=== PATIENT | male | born 1970 | race Caucasian/White ===

== ENCOUNTER 2017-12-26 11:26 | Emergency (ER) | payer OTHER ==
--- NOTE | 2017-12-26 11:28 | EDM.PDOC ---
ED HPI GENERAL MEDICAL PROBLEM - General Stated Complaint: INJURED RT ARM Time Seen by Provider: 12/26/17 11:27 Source of Information: Reports: Patient - History of Present Illness INITIAL COMMENTS - FREE TEXT/NARRATIVE: HISTORY AND PHYSICAL: History of present illness: []Patient presents with right bicep pain and tenderness 4 out of 10 worsened by movement, just prior to arrival he was moving a water heater, he felt his right bicep "tear" on exam shoulder elbow and wrist are unaffected no pain with head movement is tender more on the proximal bicep there is no bruising redness or warmth entire limb is neurovascularly intact Nucleated this time appears as if there could be a partial tear, may involve the proximal bicep rather than distal insertion Review of systems: As per history of present illness and below otherwise all systems reviewed and negative. Past medical history: As per history of present illness and as reviewed below otherwise noncontributory. Surgical history: As per history of present illness and as reviewed below otherwise noncontributory. Social history: No reported history of drug or alcohol abuse. Family history: As per history of present illness and as reviewed below otherwise noncontributory. Physical exam: HEENT: Atraumatic, normocephalic, pupils reactive, negative for conjunctival pallor or scleral icterus, mucous membranes moist, throat clear, neck supple, nontender, trachea midline. Lungs: Clear to auscultation, breath sounds equal bilaterally, chest nontender. Heart: S1S2, regular, negative for clicks, rubs, or JVD. Abdomen: Soft, nondistended, nontender. Negative for masses or hepatosplenomegaly. Negative for costovertebral tenderness. Pelvis: Stable nontender. Genitourinary: Deferred. Rectal: Deferred. Extremities: Atraumatic, negative for cords or calf pain. Neurovascular unremarkable. Neuro: Awake, alert, oriented. Cranial nerves II through XII unremarkable. Cerebellum unremarkable. Motor and sensory unremarkable throughout. Exam nonfocal. Diagnostics: [Clinical ] Therapeutics: [ rest ice ibuprofen Sling for comfort Follow-up with fourth toe Impression: [ right bicep injury ] Definitive disposition and diagnosis as appropriate pending reevaluation and review of above. Right Upper Arm Pain Score (Numeric/FACES): 5 - Related Data Allergies Allergy/AdvReac Type Severity Reaction Status Date / Time No Known Allergies Allergy Verified 12/26/17 11:37 Home Meds: Home Meds Lisinopril 10 mg PO DAILY 05/25/14 [History] metFORMIN [Glucophage XR] 1,500 mg PO DAILY 05/25/14 [History] Pravastatin [Pravachol] 1 tab PO DAILY 04/09/16 [History] Empagliflozin [Jardiance] 1 tab PO DAILY 12/26/17 [History] Past Medical History Cardiovascular History: Reports: High Cholesterol, Hypertension Endocrine/Metabolic History: Reports: Diabetes, Type II - Infectious Disease History Infectious Disease History: Reports: Chicken Pox Social & Family History - Family History Family Medical History: Noncontributory - Caffeine Use Caffeine Use: Reports: Coffee ED ROS GENERAL - Review of Systems Review Of Systems: See Below ED EXAM, GENERAL - Physical Exam Exam: See Below Course - Vital Signs Last Recorded V/S: Last Vital Signs Temp 98.0 F 12/26/17 11:35 Pulse 81 12/26/17 11:35 Resp 18 12/26/17 11:35 BP 130/82 12/26/17 11:35 Pulse Ox 99 12/26/17 11:35 Departure - Departure Time of Disposition: 11:51 Disposition: Home, Self-Care 01 Condition: Good Clinical Impression: Biceps strain - Discharge Information Additional Instructions: Rest Ice 20 minute intervals 3 times daily Ibuprofen 400 mg 3 times daily 7-10 days Sling for comfort Follow-up with orthopedist, call phone number provided below to schedule appropriate follow-up [facility] [address], [address] [place] [address] my orthopedic The following information is given to patients seen in the emergency department who are being discharged to home. This information is to outline your options for follow-up care. We provide all patients seen in our emergency department with a follow-up referral. The need for follow-up, as well as the timing and circumstances, are variable depending upon the specifics of your emergency department visit. If you don't have a primary care physician on staff, we will provide you with a referral. We always advise you to contact your personal physician following an emergency department visit to inform them of the circumstance of the visit and for follow-up with them and/or the need for any referrals to a consulting specialist. The emergency department will also refer you to a specialist when appropriate. This referral assures that you have the opportunity for follow-up care with a specialist. All of these measure are taken in an effort to provide you with optimal care, which includes your follow-up. Under all circumstances we always encourage you to contact your private physician who remains a resource for coordinating your care. When calling for follow-up care, please make the office aware that this follow-up is from your recent emergency room visit. If for any reason you are refused follow-up, please contact the [facility] emergency department at and asked to speak to the emergency department charge nurse.
[2017-12-26 11:37] VITALS: BP 130/82
== END 2017-12-26 11:55 | disposition home or self-care (01) ==
LOC: MW.ED 11:26
DX: S46.211A Strain of muscle, fascia and tendon of other parts of biceps, right arm, initial encounter (principal); I10 Essential (primary) hypertension; E11.9 Type 2 diabetes mellitus without complications; X58.XXXA Exposure to other specified factors, initial encounter; Z79.899 Other long term (current) drug therapy
CPT/HCPCS: 99282; 99283

== ENCOUNTER 2020-01-15 09:52 | Day surgery (SDC) | payer OTHER ==
[~2020-01-15 09:52] MED LIST: Lactated Ringers 1,000 ML IV SCH
--- NOTE | 2020-01-15 10:29 | PCM.PREANE ---
Preanesthetic Assessment - Anesthesia/Transfusion/Family Hx Anesthesia History: Prior Anesthesia Without Reaction Family History of Anesthesia Reaction: No Transfusion History: No Prior Transfusion(s) - Review of Systems General: No Symptoms Pulmonary: No Symptoms Cardiovascular: No Symptoms Gastrointestinal: No Symptoms Neurological: No Symptoms Other: Reports: None - Physical Assessment NPO Status Date: 01/14/20 Height: 5 ft 7 in Weight: 99.79 kg ASA Class: 2 Mental Status: Alert & Oriented x3 Airway Class: Mallampati = 2 Dentition: Reports: Normal Dentition ROM/Head Extension: Full Lungs: Clear to Auscultation, Normal Respiratory Effort Cardiovascular: Regular Rate, Regular Rhythm - Allergies Allergies/Adverse Reactions: Allergies Allergy/AdvReac Type Severity Reaction Status Date / Time No Known Allergies Allergy Verified 01/09/20 14:17 - Blood Blood Available: No - Anesthesia Plan Pre-Op Medication Ordered: None - Acknowledgements Anesthesia Type Planned: General Anesthesia, MAC Pt an Appropriate Candidate for the Planned Anesthesia: Yes Alternatives and Risks of Anesthesia Discussed w Pt/Guardian: Yes Pt/Guardian Understands and Agrees with Anesthesia Plan: Yes Additional Comments: PMH: dm2- am [id number], htn, hemochromatosis, migraine, rosmery-uses cpap, PreAnesthesia Questionnaire Cardiovascular History: Reports: High Cholesterol, Hypertension Respiratory History: Reports: Sleep Apnea Other Respiratory History: uses CPAP every night Endocrine/Metabolic History: Reports: Diabetes, Type II, Obesity/BMI 30+ Hematologic History: Reports: Other (See Below) Other Hematologic History: hx of Hemochromatosis- donates blood at every blood drive - Infectious Disease History Infectious Disease History: Reports: Chicken Pox - Past Surgical History Head Surgeries/Procedures: Reports: None HEENT Surgical History: Reports: Eye Surgery, Tonsillectomy Male Surgical History: Reports: Vasectomy Neurological Surgical History: Reports: C-Spine, Spinal Fusion Other Neurological Surgeries/Procedures: unsure of procedure in neck but has a "plate" - SUBSTANCE USE Smoking Status *Q: Never Smoker Recreational Drug Use History: No - HOME MEDS Home Medications: Home Meds Lisinopril 10 mg PO BEDTIME 05/25/14 [History] Pravastatin [Pravachol] 20 mg PO BEDTIME 04/09/16 [History] Empagliflozin [Jardiance] 25 mg PO QAM 12/26/17 [History] Aspirin [Adult Low Dose Aspirin EC] 81 mg PO DAILY 12/21/19 [History] Ozempic 0.25 mg SQ WEEKLY 12/21/19 [History] metFORMIN HCl [Metformin HCl ER] 2,000 mg PO QPM 12/21/19 [History] - CURRENT (IN HOUSE) MEDS Current Meds: Current Medications Lactated Ringer's (Ringers, Lactated) 1,000 mls @ 125 mls/hr IV ASDIRECTED ROSALIA Discontinued Medications Lactated Ringer's (Ringers, Lactated) 1,000 mls @ 125 mls/hr IV ASDIRECTED ROSALIA
[2020-01-15] MEDS ORDERED: fentaNYL 100 MCG/2 ML SDV ONE (10:41)
[2020-01-15] MEDS ORDERED: Propofol 200 MG/20 ML SDV ONE (10:41)
[2020-01-15] MEDS ORDERED: Midazolam 1 MG/ML 2 ML SDV ONE (10:41)
[2020-01-15] MEDS ORDERED: Ketorolac 30 MG/ML SDV ONE (10:43)
[2020-01-15] MEDS ORDERED: Glycopyrrolate 0.2 MG/ML SDV ONE (10:43)
[2020-01-15] MEDS ORDERED: Ondansetron 4 MG/2 ML SDV ONE (10:43)
[2020-01-15] MEDS ORDERED: Bupivacaine 0.5% 10 ML SDV ONE (10:44)
[2020-01-15] MEDS ORDERED: Acetaminophen/HYDROcodone 325-5 MG Tab PO PRN (11:55)
--- NOTE | 2020-01-15 11:59 | PCM.OPNOTE ---
- General Post-Op/Procedure Note Date of Surgery/Procedure: 01/15/20 Operative Procedure(s): Excision right breast mass Pre Op Diagnosis: Palpable right breast mass Post-Op Diagnosis: Same Anesthesia Technique: General LMA (ASA II) Primary Surgeon: Hardy Galdamez Fluid Replacement, Intraop: 600 EBL in mLs: 5 Condition: Good Free Text/Narrative:: DICTATION 380003 CPT CODE 56278
[2020-01-15] MEDS ORDERED: Lactated Ringers 1,000 ML IV SCH (12:00)
[2020-01-15 13:04] VITALS: BP 136/79; PULSE 69
--- NOTE | 2020-01-15 14:06 | PCM.POSTAN ---
POST ANESTHESIA ASSESSMENT - MENTAL STATUS Mental Status: Alert, Oriented - VITAL SIGNS Vital Signs: Last Vital Signs Temp 97.3 F 01/15/20 12:15 Pulse 69 01/15/20 12:40 Resp 16 01/15/20 12:40 BP 136/79 01/15/20 12:40 Pulse Ox 95 01/15/20 12:40 - RESPIRATORY Respiratory Status: Respiratory Rate WNL, Airway Patent, O2 Saturation Stable - CARDIOVASCULAR CV Status: Pulse Rate WNL, Blood Pressure Stable - GASTROINTESTINAL GI Status: No Symptoms - POST OP HYDRATION Hydration Status: Adequate & Stable
--- NOTE | 2020-01-15 14:06 | PCM48HPAN ---
Post Anesthesia Note - EVALUATION WITHIN 48HRS OF ANESTHETIC Vital Signs in Normal Range: Yes Patient Participated in Evaluation: Yes Respiratory Function Stable: Yes Airway Patent: Yes Cardiovascular Function Stable: Yes Hydration Status Stable: Yes Pain Control Satisfactory: Yes Nausea and Vomiting Control Satisfactory: Yes Mental Status Recovered: Yes Vital Signs: Last Vital Signs Temp 97.3 F 01/15/20 12:15 Pulse 69 01/15/20 12:40 Resp 16 01/15/20 12:40 BP 136/79 01/15/20 12:40 Pulse Ox 95 01/15/20 12:40
--- NOTE | 2020-01-15 16:57 | OR ---
SURGEON: Hardy Galdamez M.D. DATE OF PROCEDURE: 01/15/2020 OPERATION PERFORMED: Excision of right breast mass. PRIMARY SURGEON: Hardy Galdamez MD ANESTHESIA: General LMA. ASA CLASSIFICATION: II. PREOPERATIVE DIAGNOSIS: Palpable right breast mass. POSTOPERATIVE DIAGNOSIS: Palpable right breast mass. ESTIMATED BLOOD LOSS: 5 mL. INTRAOPERATIVE FLUID REPLACEMENT: 600 mL of crystalloid. DESCRIPTION OF PROCEDURE: The patient was taken to the operating room, placed on the operating table in the supine position. Time-out was called for appropriate identification of the patient and procedure. Surgical site had been marked prior to the patient entering the operating room. Following satisfactory attainment of general anesthesia with placement of an LMA, the right breast was prepped with Betadine solution and sterile drapes were applied. Skin incision had previously been marked out and was now infiltrated with 10 mL of 0.5% Marcaine solution. Skin incision was made and deepened into the subcutaneous tissue identifying the breast mass. This was circumferentially excised using electrocautery. Specimen was sent for permanent histologic analysis. Bleeding sites were electrocoagulated. The wound was irrigated with sterile saline solution. The subcutaneous tissue was closed with running 3-0 Vicryl. The skin edges were reapproximated with subcuticular 4-0 Monocryl, reinforced with half-inch Steri- Strips. The wound was then dressed with a sterile Tegaderm pad. Sponge, needle, and instrument counts were all correct. Following emergence from anesthesia and extubation, the patient was taken to recovery room in stable condition. CATHY / MARLIN /[id number]
== END 2020-01-15 12:45 | disposition home or self-care (01) ==
LOC: MW.SDS 09:52
PROVIDERS: ATTEND Surgery
DX: N60.81 Other benign mammary dysplasias of right breast (principal); E11.9 Type 2 diabetes mellitus without complications; E78.5 Hyperlipidemia, unspecified; G47.33 Obstructive sleep apnea (adult) (pediatric); I10 Essential (primary) hypertension; E66.9 Obesity, unspecified; Z79.899 Other long term (current) drug therapy; Z99.89 Dependence on other enabling machines and devices; Z68.34 Body mass index [BMI] 34.0-34.9, adult
CPT/HCPCS: 19120; 88305; J1885; J2001; J2250; J2405; J2704; J3010; J3490; J7120; 00400